=== PATIENT | female | born 1975 | race African-American/Black ===

== ENCOUNTER 2016-12-04 19:02 | Emergency (ER) | payer SELFPAY ==
--- NOTE | 2016-12-04 21:21 | RADIOLOGY REPORT (SQ) ---
EXAM DESCRIPTION: FOOT RIGHT COMPLETE COMPLETED DATE/TIME: 12/04/2016 7:59 pm REASON FOR STUDY: Foot/toe pain s/p injury COMPARISON: None. NUMBER OF VIEWS: Three views. TECHNIQUE: AP, lateral and oblique radiographic images acquired of the right foot. LIMITATIONS: None. FINDINGS: MINERALIZATION: Normal. BONES: Minimally displaced proximal 5th phalanx fracture. No dislocation. No worrisome bone lesions . JOINTS: No effusions. SOFT TISSUES: Mild soft tissue swelling. No foreign body. OTHER: No other significant finding. IMPRESSION: Minimally displaced proximal 5th phalanx fracture. No dislocation. TECHNICAL DOCUMENTATION: JOB ID: [id number] [employer]- All Rights Reserved
--- NOTE | 2016-12-04 21:23 | RADIOLOGY REPORT (SQ) ---
EXAM DESCRIPTION: KNEE LEFT 4 VIEW COMPLETED DATE/TIME: 12/04/2016 8:00 pm REASON FOR STUDY: knee pain s/p injury COMPARISON: None. NUMBER OF VIEWS: Four views. TECHNIQUE: AP, lateral, and both oblique radiographic images acquired of the left knee. LIMITATIONS: None. FINDINGS: MINERALIZATION: Normal. BONES: No acute fracture or dislocation. No worrisome bone lesions. JOINT: No effusion. SOFT TISSUES: No soft tissue swelling. No radio-opaque foreign body. OTHER: No other significant finding. IMPRESSION: NO RADIOGRAPHIC EVIDENCE OF ACUTE INJURY. TECHNICAL DOCUMENTATION: JOB ID: [id number] [employer]- All Rights Reserved
--- NOTE | 2016-12-04 21:36 | ER Document Report ---
HPI - HPI Patient complains to provider of: left knee pain, right toe pain Pain Level: 4 Context: Patient is a 41-year-old female comes emergency department for chief complaint of pain to her left knee and also pain to her right fifth digit. She states that she tripped over her knees and landed on her left knee, this was almost 2 weeks ago, she also states that she hit her right pinky toe on a lawn chair 3 days ago. She states she is worried because her knee still hurts at times and her toe is swollen and painful. She states it is difficult to sleep because of her toe pain. She is not on a blood thinner. She denies any other injuries. - DERM Skin Color: Normal Past Medical History - General Information source: Patient - Social History Smoking Status: Never Smoker Frequency of alcohol use: None Drug Abuse: None Lives with: Family Family History: Reviewed & Not Pertinent Patient has suicidal ideation: No Patient has homicidal ideation: No - Medical History Medical History: Negative Renal/ Medical History: Denies: Hx Peritoneal Dialysis Psychiatric Medical History: Reports: Hx Anxiety Past Surgical History: Reports: Hx Section, Hx Hysterectomy Vertical Provider Document - INFECTION CONTROL TRAVEL OUTSIDE OF THE [place] IN LAST 30 DAYS: No - HEENT HEENT: Atraumatic, Normocephalic - NECK Neck: Normal Inspection - RESPIRATORY Respiratory: Breath Sounds Normal, No Respiratory Distress O2 Sat by Pulse Oximetry: 100 - CARDIOVASCULAR Cardiovascular: Regular Rate, Regular Rhythm - GI/ABDOMEN Gastrointestinal: Abdomen Soft, Abdomen Non-Tender - BACK Back: Normal Inspection - MUSCULOSKELETAL/EXTREMETIES Musculoskeletal/Extremeties: Tender - Patient with tenderness over the anterior knee, small areas of healed abrasions, no swelling over the knee, range of motion of the knee intact, normal left lower extremity exam otherwise. Right fifth toe with swelling and large amount of tenderness over the entire toe. Normal foot and lower extremity exam on the right otherwise. - NEURO Level of Consciousness: Awake, Alert, Appropriate Motor/Sensory: No Motor Deficit, No Sensory Deficit - DERM Integumentary: Warm, Dry, No Rash Course - Re-evaluation Re-evalutation: X-ray imaging showing normal knee exam on the left, patient has no concerning abnormalities on exam with her knee. Shows fracture of the right fifth digit. Patient has a foot shape that does not allow me to perform comfortable ankur taping. Patient was given a postop shoe for protection. Because she cannot sleep at night because of the pain in the amount of swelling over the toe which appears obviously painful patient was given some pain medication to treat the broken bone. Discussed follow-up, return precautions, patient states understanding and agreement. - Vital Signs Vital signs: Temp Pulse Resp BP Pulse Ox 97.9 F 84 18 138/101 H 100 12/04/16 19:20 12/04/16 19:20 12/04/16 19:20 12/04/16 19:20 12/04/16 19:20 Discharge - Discharge Clinical Impression: Contusion of left knee Qualifiers: Encounter type: initial encounter Qualified Code(s): S80.02XA - Contusion of left knee, initial encounter Toe fracture, right Qualifiers: Encounter type: initial encounter Toe: lesser toe Fracture type: closed Phalanx : distal Fracture alignment: nondisplaced Qualified Code(s): S92.534A - Nondisplaced fracture of distal phalanx of right lesser toe(s), initial encounter for closed fracture Condition: Stable Disposition: HOME, SELF-CARE Additional Instructions: X-ray of the knee shows no concerning abnormalities, this appears to be a bruise of the soft tissue with no concerning abnormalities otherwise. X-ray of the foot shows fracture of the little toe, this will heal with time, elevate your foot, wear the postop shoe provided, you can ankur tape this as described as well. Take the pain medication if needed to sleep, otherwise I recommend Tylenol. Follow-up with primary care. Return to the emergency department for any concerning symptoms. Prescriptions: Morphine Sulfate [Morphine Ir 15 Mg Tablet] 15 mg PO Q4HP PRN #8 tablet PRN Reason: Forms: Return to Work Referrals: JESUS FIGUEREDO MD [Primary Care Provider] - Follow up as needed
[2016-12-04 22:08] VITALS: BP 140/90
== END 2016-12-04 21:03 | disposition home or self-care (01) ==
LOC: ER 19:02
DX: S92.534A Nondisplaced fracture of distal phalanx of right lesser toe(s), initial encounter for closed fracture (principal); W22.8XXA Striking against or struck by other objects, initial encounter; Y92.34 Swimming pool (public) as the place of occurrence of the external cause; S80.02XA Contusion of left knee, initial encounter; M25.562 Pain in left knee; W10.9XXA Fall (on) (from) unspecified stairs and steps, initial encounter
CPT/HCPCS: 99283

== ENCOUNTER 2017-02-22 10:44 | Observation (INO) | payer SELFPAY ==
[2017-02-22] MEDS ORDERED: ASPIRIN 81 MG TABLET, CHEWABLE PO ONE (10:50)
[2017-02-22 11:06] LABS: ABSOLUTE BASOPHILS # (AUTO) 0.1 10^3/uL (0.0-0.2); ABSOLUTE EOSINOPHILS # (AUTO) 0.1 10^3/uL (0.0-0.6); ABSOLUTE LYMPHOCYTES (AUTO) 2.6 10^3/uL (0.5-4.7); ABSOLUTE MONOCYTES (AUTO) 0.5 10^3/uL (0.1-1.4); ABSOLUTE NEUT (AUTO) 3.8 10^3/uL (1.7-8.2); BASOPHILS % (AUTO) 1.1 % (0-2); EOSINOPHILS % (AUTO) 1.2 % (0-6); HEMATOCRIT 39.4 % (36.0-47.0); HEMOGLOBIN 13.5 g/dL (12.0-15.5); LYMPHOCYTES % (AUTO) 36.7 % (13-45); MEAN CORPUSCULAR HEMOGLOBIN 31.9 pg (27.0-33.4); MEAN CORPUSCULAR HGB CONC 34.2 g/dL (32.0-36.0); MEAN CORPUSCULAR VOLUME 93 fl (80-97); MONOCYTES % (AUTO) 7.5 % (3-13); PLATELET COUNT 300 10^3/uL (150-450); RED BLOOD COUNT 4.22 10^6/uL (3.72-5.28); RED CELL DISTRIBUTION WIDTH 12.8 % (11.5-14.0); SEGMENTED NEUTROPHILS % (AUTO) 53.5 % (42-78); TOTAL CELLS COUNTED % (AUTO) 100 %; WHITE BLOOD COUNT 7.2 10^3/uL (4.0-10.5)
--- NOTE | 2017-02-22 11:32 | ER Document Report ---
ED General - General Chief Complaint: Chest Pressure Stated Complaint: CHEST PAIN Time Seen by Provider: 02/22/17 10:50 Mode of Arrival: Ambulatory Information source: Patient Notes: 41-year-old female history of anxiety presents with complaints of sudden dizziness chest pain and then hyperventilating just prior to arrival. She denies any fevers or chills denies any previous cardiac history patient admits to an extensive family history of cardiac concerns. Patient notes sister had SC at 47 and had open heart surgery mother had similar history Patient denies any cardiac workup TRAVEL OUTSIDE OF THE [place] IN LAST 30 DAYS: No - HPI Onset: Just prior to arrival Onset/Duration: Sudden Quality of pain: Pressure Severity: Mild Pain Level: 1 Associated symptoms: Chest pain, Shortness of breath, Other - Anxious Exacerbated by: Walking Relieved by: Denies Similar symptoms previously: Yes - Panic attack 1 year ago Recently seen / treated by doctor: No - Related Data Allergies/Adverse Reactions: No Known Allergies Allergy (Verified 12/04/16 19:20) Past Medical History - Social History Smoking Status: Current Every Day Smoker Cigarette use (# per day): Yes Chew tobacco use (# tins/day): No Smoking Education Provided: Yes - Patient counselled regarding cessation for 4 minutes Frequency of alcohol use: None Drug Abuse: None Family History: CAD - Extensive cardiac history of mother father and sister Patient has suicidal ideation: No Patient has homicidal ideation: No Renal/ Medical History: Denies: Hx Peritoneal Dialysis Psychiatric Medical History: Reports: Hx Anxiety Past Surgical History: Reports: Hx Section, Hx Hysterectomy Review of Systems - Review of Systems Notes: REVIEW OF SYSTEMS: CONSTITUTIONAL : Denies fever, chills, or sweats. Denies recent illness. EENT: Denies eye, ear, throat, or mouth pain or symptoms. Denies nasal or sinus congestion or discharge. Denies throat, tongue, or mouth swelling or difficulty swallowing. CARDIOVASCULAR: Admits to chest pain RESPIRATORY: Admits shortness of breath GASTROINTESTINAL: Denies abdominal pain or distention. Denies nausea, vomiting , or diarrhea. Denies blood in vomitus, stools, or per rectum. Denies black, tarry stools. Denies constipation. GENITOURINARY: Denies difficulty urinating, painful urination, burning, frequency, blood in urine, or discharge. FEMALE GENITOURINARY: Denies vaginal bleeding, heavy or abnormal periods, irregular periods. Denies vaginal discharge or odor. MUSCULOSKELETAL: Denies back or neck pain or stiffness. Denies joint pain or swelling. SKIN: Denies rash, lesions or sores. HEMATOLOGIC : Denies easy bruising or bleeding. LYMPHATIC: Denies swollen, enlarged glands. NEUROLOGICAL: Denies confusion or altered mental status. Denies passing out or loss of consciousness. Denies dizziness or lightheadedness. Denies headache. Denies weakness or paralysis or loss of use of either side. Denies problems with gait or speech. Denies sensory loss, numbness, or tingling. Denies seizures. PSYCHIATRIC: Admits anxiety ALL OTHER SYSTEMS REVIEWED AND NEGATIVE. PHYSICAL EXAMINATION: GENERAL: Well-appearing, well-nourished and in no acute distress. HEAD: Atraumatic, normocephalic. EYES: Pupils equal round and reactive to light, extraocular movements intact, conjunctiva are normal. ENT: Nares patent, oropharynx clear without exudates. Moist mucous membranes. NECK: Normal range of motion, supple without lymphadenopathy LUNGS: Breath sounds clear to auscultation bilaterally and equal. No wheezes rales or rhonchi. HEART: Regular rate and rhythm without murmurs ABDOMEN: Soft, nontender, nondistended abdomen. No guarding, no rebound. No masses appreciated. Female : deferred Musculoskeletal: Normal range of motion, no pitting or edema. No cyanosis. NEUROLOGICAL: Cranial nerves grossly intact. Normal speech, normal gait. Normal sensory, motor exams PSYCH: Normal mood, normal affect. SKIN: Warm, Dry, normal turgor, no rashes or lesions noted. Dictation was performed using [employer] voice recognition software 5-year-old female Physical Exam - Vital signs Vitals: BP 153/104 H 02/22/17 10:48 Course - Re-evaluation Re-evalutation: 02/22/17 11:38 Patient's presentation is probably secondary to anxiety however the patient does have extensive family history of cardiac concerns, lab work pending at this time she is stable - Vital Signs Vital signs: Temp Pulse Resp BP Pulse Ox 24 H 126/89 H 99 02/22/17 12:01 02/22/17 12:01 02/22/17 12:01 - Laboratory Result Diagrams: 02/22/17 10:55 02/22/17 10:55 Laboratory results interpreted by me: 02/22/17 10:55 Creatinine 0.51 L Glucose 212 H Discharge - Discharge Clinical Impression: Chest pain Condition: Stable Disposition: ADMITTED OBSERVATION Admitting Provider: Hospitalist Unit Admitted: Telemetry
--- NOTE | 2017-02-22 11:34 | RADIOLOGY REPORT (SQ) ---
EXAM DESCRIPTION: CHEST SINGLE VIEW COMPLETED DATE/TIME: 02/22/2017 11:01 am REASON FOR STUDY: chest pain COMPARISON: None. EXAM PARAMETERS: NUMBER OF VIEWS: One view. TECHNIQUE: Single frontal radiographic view of the chest acquired. RADIATION DOSE: NA LIMITATIONS: Large patient, portable technique FINDINGS: LUNGS AND PLEURA: No opacities, masses or pneumothorax. No pleural effusion. MEDIASTINUM AND HILAR STRUCTURES: No masses. Contour normal. HEART AND VASCULAR STRUCTURES: Heart normal in size. Normal vasculature. BONES: No acute findings. HARDWARE: None in the chest. OTHER: No other significant finding. IMPRESSION: NO ACUTE RADIOGRAPHIC FINDING IN THE CHEST. TECHNICAL DOCUMENTATION: JOB ID: [id number] [employer]- All Rights Reserved
[2017-02-22 11:39] LABS: ALANINE AMINOTRANSFERASE 23 U/L (9-52); ALBUMIN 4.4 g/dL (3.5-5.0); ALKALINE PHOSPHATASE 59 U/L (38-126); ANION GAP 13 (5-19); ASPARTATE AMINO TRANSFERASE 16 U/L (14-36); BILIRUBIN,DIRECT 0.3 mg/dL (0.0-0.4); BILIRUBIN,TOTAL 0.6 mg/dL (0.2-1.3); BLOOD UREA NITROGEN 8 mg/dL (7-20); CALCIUM 9.7 mg/dL (8.4-10.2); CARBON DIOXIDE 25 mmol/L (22-30); CHLORIDE 102 mmol/L (98-107); CREATINE KINASE 97 U/L (30-135); GLUCOSE 212 mg/dL (75-110); POTASSIUM 4.6 mmol/L (3.6-5.0); SODIUM 139.5 mmol/L (137-145); TOTAL PROTEIN 7.8 g/dL (6.3-8.2)
[2017-02-22 11:54] LABS: CREATINE KINASE MB < 0.22 ng/mL (<4.55); TROPONIN I < 0.012 ng/mL
[2017-02-22] MEDS ORDERED: TRAZODONE HCL 50 MG TABLET PO PRN (12:50)
[2017-02-22] MEDS ORDERED: NITROGLYCERIN 0.4 MG/TAB 25 TAB/BOTTLE SL PRN (12:50)
[2017-02-22] MEDS ORDERED: ONDANSETRON 4 MG TAB.RAPDIS PO PRN (12:50)
[2017-02-22 15:09] LABS: CREATINE KINASE MB < 0.22 ng/mL (<4.55); TROPONIN I < 0.012 ng/mL
[2017-02-22] MEDS ORDERED: AMINOPHYLLINE INJ/PF 250 MG/10 ML SDV IV ONE (16:00)
[2017-02-22] MEDS ORDERED: REGADENOSON INJ 0.4 MG/5 ML DISP.SYRIN IV ONE (16:00)
[2017-02-22] MEDS: DOCUSATE SODIUM 100 MG CAPSULE PO SCH (16:20)
[2017-02-22] MEDS ORDERED: LACTULOSE SYRUP 20 GM/30 ML UDCUP PO ONE (16:51)
--- NOTE | 2017-02-22 17:09 | PDOC H&P ---
History of Present Illness Admission Date/PCP: 02/22/17 13:22 Patient complains of: Chest pain History of Present Illness: JEREMIAH HSU is a 41 year old female with a past medical history of morbid obesity, anxiety disorder and tobacco. Patient presents with 6 hours of reproducible sternal chest pain as well as bilateral chest pain which is dull in nature, 3 out of 5 intensity waxing and waning worsened by exertion associated with shortness of breath, no palpitations, nausea or vomiting. Patient believes pain somewhat better following aspirin. Denies injury or previous episode. Patient gives a strong family history of premature coronary artery disease in multiple immediate family members and is referred to the hospitalist for observation. Past Medical History Endocrine Medical History: Reports: Obesity Psychiatric Medical History: Reports: General Anxiety Disorder, Tobacco Dependency Past Surgical History Past Surgical History: Reports: Section, Hysterectomy Social History Information Source: Patient Lives with: Family Smoking Status: Current Every Day Smoker Frequency of Alcohol Use: Occasional Drugs: Marijuana - Advance Directive Resuscitation Status: Full Code Family History Family History: CAD - Extensive cardiac history of mother father and sister Parental Family History Reviewed: Yes Children Family History Reviewed: Yes Sibling(s) Family History Reviewed.: Yes Medication/Allergy Home Medications: No Home Medications 02/22/17 Allergies/Adverse Reactions: No Known Allergies Allergy (Verified 12/04/16 19:20) Review of Systems Constitutional: ABSENT: chills, fever(s), headache(s), weight gain, weight loss Eyes: ABSENT: visual disturbances Ears: ABSENT: hearing changes Cardiovascular: ABSENT: chest pain, dyspnea on exertion, edema, orthropnea, palpitations Respiratory: ABSENT: cough, hemoptysis Gastrointestinal: ABSENT: abdominal pain, constipation, diarrhea, hematemesis, hematochezia, nausea, vomiting Genitourinary: ABSENT: dysuria, hematuria Musculoskeletal: ABSENT: joint swelling Integumentary: ABSENT: rash, wounds Neurological: ABSENT: abnormal gait, abnormal speech, confusion, dizziness, focal weakness, syncope Psychiatric: ABSENT: anxiety, depression, homidical ideation, suicidal ideation Endocrine: ABSENT: cold intolerance, heat intolerance, polydipsia, polyuria Hematologic/Lymphatic: ABSENT: easy bleeding, easy bruising Physical Exam Vital Signs: Temp Pulse Resp BP Pulse Ox 98.6 F 102 H 19 149/84 H 98 02/22/17 16:04 02/22/17 16:04 02/22/17 16:04 02/22/17 16:04 02/22/17 16:04 Intake & Output 02/21/17 02/22/17 02/23/17 11:59 11:59 11:59 Weight 117.934 kg General appearance: PRESENT: no acute distress, well-developed, well-nourished Head exam: PRESENT: atraumatic, normocephalic Eye exam: PRESENT: conjunctiva pink, EOMI, PERRLA. ABSENT: scleral icterus Ear exam: PRESENT: normal external ear exam Mouth exam: PRESENT: moist, tongue midline Neck exam: ABSENT: carotid bruit, JVD, lymphadenopathy, thyromegaly Respiratory exam: PRESENT: clear to auscultation del. ABSENT: rales, rhonchi, wheezes Cardiovascular exam: PRESENT: RRR. ABSENT: diastolic murmur, rubs, systolic murmur Pulses: PRESENT: normal dorsalis pedis pul Vascular exam: PRESENT: normal capillary refill GI/Abdominal exam: PRESENT: distended, hypoactive bowel sounds, normal bowel sounds, soft, tenderness. ABSENT: guarding, mass, organolmegaly, rebound Torso Front/Back Image: 1 - Reproducible chest pain to palpation 2 - Reproducible pain to palpation Rectal exam: PRESENT: deferred Extremities exam: PRESENT: full ROM. ABSENT: calf tenderness, clubbing, pedal edema Neurological exam: PRESENT: alert, awake, oriented to person, oriented to place , oriented to time, oriented to situation, CN II-XII grossly intact. ABSENT: motor sensory deficit Psychiatric exam: PRESENT: appropriate affect, normal mood. ABSENT: homicidal ideation, suicidal ideation Skin exam: PRESENT: dry, intact, warm. ABSENT: cyanosis, rash Results Laboratory Results: 02/22/17 13:58 CK-MB (CK-2) < 0.22 Troponin I < 0.012 Impressions: Chest X-Ray 02/22/17 10:50 IMPRESSION: NO ACUTE RADIOGRAPHIC FINDING IN THE CHEST. Assessment & Plan - Diagnosis (1) Atypical chest pain Is this a current diagnosis for this admission?: Yes Plan: Atypical chest pain though the patient's pain is atypical there are multiple risk factors for coronary artery disease and subsequently will observe and evaluation of acute coronary syndrome versus coronary artery disease with anginal equivalents. Cardiac monitoring blood pressure Q6 hours ,TSH, lipid profile, serial cardiac enzymes and cardiac stress test (2) Morbid obesity Is this a current diagnosis for this admission?: Yes Plan: Morbid obesity will evaluate for metabolic cause with evaluation of thyroid function and dietitian consultation (3) Tobacco abuse Is this a current diagnosis for this admission?: Yes Plan: Tobacco Dependence patient received tobacco cessation counseling and offered nicotine replacement options - Time Time Spent: 30 to 50 Minutes
--- NOTE | 2017-02-22 17:56 | RADIOLOGY REPORT (SQ) ---
EXAM DESCRIPTION: ABDOMEN 2 VIEWS COMPLETED DATE/TIME: 02/22/2017 5:43 pm REASON FOR STUDY: pain and distension COMPARISON: None. NUMBER OF VIEWS: Two views. TECHNIQUE: Supine and erect/decubitus radiographic images of the abdomen acquired. LIMITATIONS: None. FINDINGS: FREE AIR: None. No abnormal gas collections. LUNG BASES: Clear. BOWEL GAS PATTERN: There are some gas filled bowel loops with air fluid levels over the mid abdomen, possible early obstruction. CALCIFICATIONS: No suspicious calcifications. SOFT TISSUES: No gross mass or suggestion of organomegaly. HARDWARE: Gastric banding tubing. BONES: No acute fracture. No worrisome bone lesions. OTHER: No other significant finding. IMPRESSION: There are some gas filled bowel loops with air fluid levels over the mid abdomen, possib le early obstruction. TECHNICAL DOCUMENTATION: JOB ID: [id number] 2010 [employer]- All Rights Reserved
[2017-02-22 21:30] LABS: CREATINE KINASE MB < 0.22 ng/mL (<4.55); TROPONIN I < 0.012 ng/mL
[2017-02-22] MEDS ORDERED: ATORVASTATIN CALCIUM 80 MG TABLET PO SCH (22:00)
[2017-02-23 03:42] LABS: CREATINE KINASE MB < 0.22 ng/mL (<4.55); TROPONIN I < 0.012 ng/mL
[2017-02-23 06:46] LABS: ABSOLUTE EOSINOPHILS # (AUTO) 0.1 10^3/uL (0.0-0.6); ABSOLUTE LYMPHOCYTES (AUTO) 2.8 10^3/uL (0.5-4.7); ABSOLUTE MONOCYTES (AUTO) 0.6 10^3/uL (0.1-1.4); ABSOLUTE NEUT (AUTO) 2.9 10^3/uL (1.7-8.2); BASOPHILS % (AUTO) 0.6 % (0-2); EOSINOPHILS % (AUTO) 1.5 % (0-6); HEMATOCRIT 37.3 % (36.0-47.0); HEMOGLOBIN 12.7 g/dL (12.0-15.5); LYMPHOCYTES % (AUTO) 43.8 % (13-45); MEAN CORPUSCULAR HEMOGLOBIN 32.4 pg (27.0-33.4); MEAN CORPUSCULAR HGB CONC 34.1 g/dL (32.0-36.0); MEAN CORPUSCULAR VOLUME 95 fl (80-97); MONOCYTES % (AUTO) 8.8 % (3-13); PLATELET COUNT 249 10^3/uL (150-450); RED BLOOD COUNT 3.93 10^6/uL (3.72-5.28); RED CELL DISTRIBUTION WIDTH 12.5 % (11.5-14.0); SEGMENTED NEUTROPHILS % (AUTO) 45.3 % (42-78); TOTAL CELLS COUNTED % (AUTO) 100 %; WHITE BLOOD COUNT 6.4 10^3/uL (4.0-10.5)
[2017-02-23 07:09] LABS: ANION GAP 9 (5-19); BLOOD UREA NITROGEN 12 mg/dL (7-20); CALCIUM 9.2 mg/dL (8.4-10.2); CARBON DIOXIDE 25 mmol/L (22-30); CHLORIDE 104 mmol/L (98-107); CHOLESTEROL 193.72 mg/dL (0-200); CREATINE KINASE 63 U/L (30-135); GLUCOSE 186 mg/dL (75-110); POTASSIUM 3.9 mmol/L (3.6-5.0); SODIUM 138.1 mmol/L (137-145); TRIGLYCERIDES 447 mg/dL (<150)
[2017-02-23 07:20] LABS: DIRECT LDL 41 mg/dL (<100)
[2017-02-23] MEDS: DOCUSATE SODIUM 100 MG CAPSULE PO SCH (11:44)
--- NOTE | 2017-02-23 13:10 | DRAGON STRESS TEST REPORT ---
INTRAVENOUS LEXISCAN CARDIOLITE STRESS TEST USING SINGLE PHOTON EMMISION COMPUTERIZED TOMOGRAPHIC. DATE OF PROCEDURE: February 23, 2017 INDICATION : Chest pain CARDIAC RISK FACTORS: Dyslipidemia, tobacco abuse, family history of CAD RESTING EKG: Sinus rhythm, no baseline ST-T wave changes noted STRESS EKG: No significant changes noted with LexiScan bolus REASON FOR TERMINATION: Protocol. PROCEDURE REPORT: Baseline heart rate 85 beats per minute with blood pressure of 118/100. Patient had no significant complaints. Heart rate at 2 minutes post bolus 122 with a blood pressure of 141/81. 3 minutes post bolus heart rate 100 with blood pressure of 143/83. No significant EKG changes were noted. Patient had no significant complaints during the procedure or postprocedure. Patient injected with Aminophyllin 75 mg at 3 minutes or later after Lexiscan bolus. CONCLUSIONS: Normal EKG and hemodynamic response to IV LexiScan. NUCLEAR DATA: At rest the patient was given 14.66 millicuries of technetium 99 sestamibi injected intravenously. As per protocol rest gated SPECT images were obtained. Subsequently the patient was given intravenous LexiScan at a dose of 0.4 mg in 5 mL intravenously, followed by flush with normal saline. Subsequently the stress dose of 44.9 millicuries of technetium 99 sestamibi was injected intravenously. As per protocol stress gated images were obtained. NUCLEAR INTERPRETATION: Both raw and processed data were used for interpretation. Visual, qualitative, computer-generated quantitative data was used. There was good myocardial uptake of technetium compound. Motion artifact and soft tissue attenuations were noted. Increased visceral uptake was noted. No definitive areas of transient perfusion defect noted. No definitive areas of fixed perfusion defect or scars noted. EKG gated imaging showed LV EF at 64 %, rest and stress gated EF similar visually. T. I D. ratio was 1.32. Lung heart ratio noted to be within normal limits 0.30. No significant extracardiac and abnormal radiotracer activities were noted. RV free wall uptake was noted to be WNL. IMPRESSION: Also refer to comments under nuclear interpretation. Also test results needs to be interpreted in the context of pretest probability. 1. There is no definitive scintigraphic evidence of LexiScan induced myocardial ischemia. 2. There is no definitive scintigraphic evidence of myocardial infarction/ scar. Mild transient ischemic dilatation noted in the stress images. Recent literature review suggest no significant increased cardiovascular event rate however clinical correlation is requested, as balanced ischemia/LVH/ microvascular ischemia could result in such a finding. 3. EKG gated imaging shows left ventricular ejection fraction of approximately 64 %. 4. Clinical correlation requested as occasionally single vessel disease or balanced ischemia could be missed. In approximately 10% of the cases Lexiscan may not cause adequate vasodilatory stress. RECOMMENDATIONS: Aggressive risk factor modification, medical therapy. Clinical correlation with echocardiogram derived ejection fraction. Inability to exercise by itself can lead to increased cardiovascular event risks. Consider cardiology consultation and or follow-up if clinically indicated. I AM AVAILABLE FOR CARDIOLOGY CONSULTATION AND FOLLOWUP IF REQUESTED BY PMD Blaise Mcqueen M.D., [employer] Business Architect interpreter and translator, Board certified in cardiovascular diseases, Nuclear cardiology, Echocardiography Cardiac CT and cardiac MRI Ph. [phone] [facility]
[2017-02-23 13:23] VITALS: BP 139/98
--- NOTE | 2017-02-23 14:26 | PDOC DISCHARGE SUMMARY ---
General - Admit/Disc Date/PCP Admission Date/Primary Care Provider: 02/22/17 13:22 Discharge Date: 02/23/17 - Discharge Diagnosis (1) Atypical chest pain Is this a current diagnosis for this admission?: Yes (2) Anxiety Is this a current diagnosis for this admission?: Yes (3) Morbid obesity Is this a current diagnosis for this admission?: Yes (4) Tobacco abuse Is this a current diagnosis for this admission?: Yes - Additional Information Resuscitation Status: Full Code Discharge Diet: Cardiac Discharge Activity: Activity As Tolerated Home Medications: No Home Medications 02/22/17 History of Present Illness History of Present Illness: JEREMIAH HSU is a 41 year old female with a past medical history of morbid obesity, anxiety disorder and tobacco use. Patient presented to ED with 6 hours of reproducible sternal chest pain as well as bilateral chest pain which was dull in nature, 3 out of 5 intensity waxing and waning worsened by exertion associated with shortness of breath, no palpitations, nausea or vomiting. Patient stated that pain was somewhat better following aspirin. Denied injury or previous episode. Patient gave a strong family history of premature coronary artery disease in multiple immediate family members and was referred to the hospitalist service for observation Hospital Course Hospital Course: Patient was admitted to telemetry unit. Troponin was trended and negative. There were no cardiac dysrhythmias. Patient underwent nuclear stress test which was negative. Patient had been advised as to follow-up with local provider as it appears that she does have a strong anxiety component. She had also been advised that to quit smoking. Since patient had achieved maximum benefit of hospitalization stay prompted to discharge under stable condition. Physical Exam Vital Signs: Temp Pulse Resp BP Pulse Ox 98.3 F 87 18 139/98 H 100 02/23/17 12:00 02/23/17 12:00 02/23/17 12:00 02/23/17 12:00 02/23/17 12:00 Intake & Output 02/22/17 02/23/17 02/24/17 06:59 06:59 06:59 Intake Total 480 Output Total 700 Balance -220 Weight 117.9 kg General appearance: PRESENT: no acute distress, cooperative, morbidly obese Head exam: PRESENT: atraumatic, normocephalic Eye exam: PRESENT: EOMI, PERRLA Ear exam: PRESENT: normal external ear exam Mouth exam: PRESENT: moist Neck exam: PRESENT: full ROM. ABSENT: JVD, tenderness Respiratory exam: PRESENT: clear to auscultation del Cardiovascular exam: PRESENT: RRR, other - chest pain reporduced on palpation of sternum. ABSENT: diastolic murmur, systolic murmur Vascular exam: PRESENT: normal capillary refill GI/Abdominal exam: PRESENT: normal bowel sounds, soft. ABSENT: guarding, tenderness Extremities exam: ABSENT: joint swelling, pedal edema Musculoskeletal exam: PRESENT: full ROM Neurological exam: PRESENT: alert, awake, oriented to person, oriented to place , oriented to time Psychiatric exam: PRESENT: appropriate affect, normal mood Results Laboratory Results: 02/23/17 05:40 02/23/17 05:40 02/23/17 02/23/17 05:40 05:40 WBC 6.4 RBC 3.93 Hgb 12.7 Hct 37.3 MCV 95 MCH 32.4 MCHC 34.1 RDW 12.5 Plt Count 249 Seg Neutrophils % 45.3 Lymphocytes % 43.8 Monocytes % 8.8 Eosinophils % 1.5 Basophils % 0.6 Absolute Neutrophils 2.9 Absolute Lymphocytes 2.8 Absolute Monocytes 0.6 Absolute Eosinophils 0.1 Absolute Basophils 0.0 Sodium 138.1 Potassium 3.9 Chloride 104 Carbon Dioxide 25 Anion Gap 9 BUN 12 Creatinine 0.51 L Est GFR ( Amer) > 60 Est GFR (Non-Af Amer) > 60 Glucose 186 H Calcium 9.2 Triglycerides 447 H Cholesterol 193.72 LDL Cholesterol Direct 41 VLDL Cholesterol UNABLE TO CALCULATE HDL Cholesterol 36 L 02/22/17 02/22/17 02/23/17 13:58 20:45 02:46 Creatine Kinase CK-MB (CK-2) < 0.22 < 0.22 < 0.22 Troponin I < 0.012 < 0.012 < 0.012 02/23/17 05:40 Creatine Kinase 63 CK-MB (CK-2) Troponin I Impressions: Chest X-Ray 02/22/17 10:50 IMPRESSION: NO ACUTE RADIOGRAPHIC FINDING IN THE CHEST. Abdomen X-Ray 02/22/17 16:51 IMPRESSION: There are some gas filled bowel loops with air fluid levels over the mid abdomen, possible early obstruction. Plan Discharge Plan: Discharge home Time Spent: Less than 30 Minutes
--- NOTE | 2017-02-24 12:43 | EKG REPORT ---
SEVERITY:- BORDERLINE ECG - SINUS TACHYCARDIA PROBABLE LEFT ATRIAL ABNORMALITY : Confirmed by: Maggie Gary MD 24-Feb-2017 12:42:41
== END 2017-02-23 15:23 | disposition home or self-care (01) ==
LOC: ER 10:44 → EH 13:22 → 4N 15:48
PROVIDERS: ADMIT Internal Medicine; ATTEND Internal Medicine
PROC: HZ31ZZZ Individual Counseling for Substance Abuse Treatment, Behavioral (ICD-10-PCS; principal; 2017-02-22)
DX: R07.89 Other chest pain (principal); F41.1 Generalized anxiety disorder; E66.01 Morbid (severe) obesity due to excess calories; F17.210 Nicotine dependence, cigarettes, uncomplicated; R06.4 Hyperventilation; Z68.42 Body mass index [BMI] 45.0-49.9, adult; Z82.49 Family history of ischemic heart disease and other diseases of the circulatory system
CPT/HCPCS: 93005; 99285; 36415 ×2; 82553 ×2; 82550 ×2; 85025 ×2; 80048; 80053; 84484 ×2; 80061; 93017; 74020; 71010; 78452; 93010; 99406; G0378 ×2; A9500; J2785; S0119; J3490 ×2; J0280; Q9969

== ENCOUNTER 2017-04-30 21:42 | Emergency (ER) | payer SELFPAY ==
[2017-04-30] MEDS ORDERED: ACETAMINOPHEN 325 MG TABLET PO ONE (23:21)
[2017-04-30] MEDS ORDERED: METOCLOPRAMIDE HCL INJ/PF 10 MG/2 ML SDV IM ONE (23:22)
[2017-04-30] MEDS ORDERED: DIPHENHYDRAMINE HCL 50 MG/ML VIAL IM ONE (23:22)
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
[2017-05-01 00:37] VITALS: BP 144/67
== END 2017-05-01 00:46 | disposition home or self-care (01) ==
LOC: ER 21:42
DX: S09.90XA Unspecified injury of head, initial encounter (principal); R51 Headache; H53.149 Visual discomfort, unspecified; W22.8XXA Striking against or struck by other objects, initial encounter
CPT/HCPCS: 99283; 96372; J1200; J2765

== ENCOUNTER 2017-07-21 13:31 | Emergency (ER) | payer MEDICAID ==
[2017-07-21] MEDS ORDERED: DIAZEPAM 5 MG TABLET PO ONE (14:24)
[2017-07-21] MEDS ORDERED: KETOROLAC TROMETHAMINE INJ/PF 30 MG/1 ML SDV IM ONE (14:24)
--- NOTE | 2017-07-21 14:31 | ER Document Report ---
ED Neck/Back Problem - General Chief Complaint: Back Pain Stated Complaint: BACK PAIN Time Seen by Provider: 07/21/17 14:07 Mode of Arrival: Ambulatory Information source: Patient TRAVEL OUTSIDE OF THE [place] IN LAST 30 DAYS: No - HPI Patient complains to provider of: Pain, Lower back Onset: Yesterday Notes: Patient is here with complaints of low back pain. The patient states she has a history of herniated disks and occasional low back pain. She denies any recent falls, trauma, injury. She denies any radiation of pain into her abdomen or her legs. She states the pain is worse with movement of her legs or with movement of her lower back. She denies abdominal pain. She denies any nausea, vomiting, diarrhea. No dysuria or hematuria. No chest pain or shortness of breath. No numbness, tingling, weakness. No bowel or bladder dysfunction. She is not on blood thinners. She denies IV drug use. She denies fever. States that she has had pain similar to this in the past. She states that she moved here about a year ago and just got her Medicaid set up but has not seen her primary care doctor as of yet. No other complaints at this time. - Related Data Allergies/Adverse Reactions: No Known Allergies Allergy (Verified 07/21/17 13:33) Past Medical History - Social History Smoking Status: Unknown if Ever Smoked Family History: CAD - Extensive cardiac history of mother father and sister Renal/ Medical History: Denies: Hx Peritoneal Dialysis Psychiatric Medical History: Reports: Hx Anxiety Past Surgical History: Reports: Hx Section, Hx Hysterectomy Review of Systems - Review of Systems -: Yes All other systems reviewed and negative Physical Exam - Vital signs Vitals: Temp Pulse Resp BP Pulse Ox 98.7 F 99 18 139/91 H 99 07/21/17 13:40 07/21/17 13:40 07/21/17 13:40 07/21/17 13:40 07/21/17 13:40 - Notes Notes: GENERAL: alert, cooperative, nontoxic, no distress. HEAD: normocephalic, atraumatic EYES: conjunctiva pink without discharge, no external redness or swelling. EARS: no external swelling, no external redness NOSE: atraumatic, no external swelling MOUTH/THROAT: mucous membranes moist and pink, posterior pharynx without erythema, swelling, exudate. No trismus or drooling. NECK: soft, supple, full range of motion, no meningismus. CHEST: no distress, lungs clear and equal throughout. No wheezing, rales, rhonchi. CARDIAC: regular rate and rhythm, no murmur, normal capillary refill, normal pulses. No peripheral edema noted. ABDOMEN: soft, nontender, no pusatile mass. BACK: No CVA tenderness. Limited range of motion of the low back. Tenderness to palpation of the lumbar paraspinal muscles. No rash. No crepitus or step- offs. EXTREMITIES: full range of motion of all extremities. No redness, no swelling. NEURO: alert and oriented A&O x 3, no focal deficits, full range of motion of all extremities. 5 out of 5 flexion and extension of the lower extremities bilaterally. Patellar and Achilles deep tendon reflexes are +2 bilaterally. Normal sensation with no saddle anesthesia. Patient can dorsiflex the great toes bilaterally. PYSCH: appropriate mood, affect. Patient is cooperative. SKIN: pink, warm, dry, no rash. Course - Re-evaluation Re-evalutation: 07/21/17 14:29 Patient is nontoxic appearing with stable vitals. She is here with complaints of low back pain. She has a history of herniated disks in low back pain in the past. Patient denies any recent falls or injuries. She is here with complaints of low back pain for the last few days. Pain is worse with movement. Is reproducible with palpation. There is no rash. She has no sign or risk of cauda equina, epidural abscess/bleed, discitis, osteomyelitis, pyelonephritis, AAA. Patient will be given a shot of Toradol and Valium in the emergency department will be discharged home with Voltaren and Valium. She is instructed to call her new primary care doctor and get established with them at the next available appointment. She is instructed to return the emergency department she develops worsening pain, high fever, difficulty breathing or swallowing, persistent vomiting, difficulty controlling her bowels or bladder, severe abdominal pain, weakness in her legs, or for any further concerns. The patient is noted to have elevated blood pressure during today's emergency department visit. The patient was informed of this finding. The patient was instructed that this may be related to pre-hypertension and requires further evaluation with a primary care provider. The patient has no hypertensive symptoms at this time. The patient's emergency department workup and current diagnosis were explained to the patient and or family. Follow-up instructions were provided. Medications if prescribed were discussed. Instructions for when to return to the emergency department including specific worrisome symptoms were discussed with the patient and/or family. - Vital Signs Vital signs: Temp Pulse Resp BP Pulse Ox 98.7 F 99 18 139/91 H 99 07/21/17 13:40 07/21/17 13:40 07/21/17 13:40 07/21/17 13:40 07/21/17 13:40 Discharge - Discharge Clinical Impression: Low back pain Qualifiers: Chronicity: acute Back pain laterality: bilateral Sciatica presence: without sciatica Qualified Code(s): M54.5 - Low back pain Condition: Stable Disposition: HOME, SELF-CARE Instructions: Low Back Pain ([facility]), Oral Narcotic Medication ([facility]) Additional Instructions: Take medications as prescribed. Try to stay somewhat active and stretch. Apply ice or heat to sore area. Follow-up with your new primary care doctor at the next available appointment. Follow-up sooner or return for worsening pain, fever, abdominal pain, difficulty controlling her bowels or bladder, weakness to the legs, persistent vomiting, chest pain or shortness of breath, or for any further concerns. Your blood pressure was elevated during today's visit. Have this rechecked with your doctor. The medication you were prescribed today may cause drowsiness. Do not drive or operate heavy machinery while taking this medication. Prescriptions: Diazepam [Valium 5 mg Tablet] 5 mg PO QIDP PRN #15 tablet PRN Reason: Diclofenac Sodium [Voltaren 50 Mg Tablet.Dr] 50 mg PO BID #20 tablet.dr Forms: Elevated Blood Pressure, Smoking Cessation Education Referrals: [facility] [Provider Group] - Follow up as needed
[2017-07-21 14:56] VITALS: BP 132/84
== END 2017-07-21 14:50 | disposition home or self-care (01) ==
LOC: ER 13:31
DX: M54.5 Low back pain (principal)
CPT/HCPCS: 99283; 96372; J3490; J1885